=== PATIENT | female | born 1955 | race Caucasian/White ===

== ENCOUNTER 2023-11-30 14:25 | Emergency (ER) | payer OTHER, SELFPAY ==
[2023-11-30 14:30] VITALS: BP 113/88
[2023-11-30 16:02] VITALS: BP 143/77
[2023-11-30 16:55] VITALS: BMI 20.1
--- NOTE | 2023-11-30 16:57 | ED.GENMED ---
History of Present Illness
General
Chief Complaint: Chest Pain
Source: patient
Exam Limitations: none
Time Seen by Provider: 11/30/23 16:50
Nursing documentation reviewed up to this point in time: agreed with
Travel History
Have you had any contact with someone who has COVID-19?: No
Do you have any symptoms of coronavirus? Fever > 100 degrees, chills, cough, shortness of breath, sore throat, loss of taste or smell, muscle aches, or headache?: No
History of Present Illness
History of Present Illness:
Patient to ED wt complaint of chest pressure x 5 days. Reports ocassional palpitations. No difficuly breathing. No pain. Eating, drinking, sleeping normally. No n/v/diaphoresis. Able to complete 2 mi run yesterday. States she was seen by
PCP today. She is supposed to leave on Sunday for vacation. He advised her to come to ED for eval prior to leaving on trip. Has had pressure in the past, usually related to stress. States pressure always resoloved on own in past. THis time
symptoms perisist. Brought to ED by spouse for eval.
Past History
Past History
ED Past Medical History: None
ED Past Surgical History: None
Social History
Tobacco: Non-smoker
Alcohol: Daily (1-2 glasses of wine)
Drug: None
Personal:
Review of Systems
Review of Systems
Allergies reviewed?: Yes
All Other Systems: ROS reviewed and negative except as documented in HPI and ROS
Constitutional: Reports no symptoms
EENT: Reports no symptoms
Respiratory: Reports no symptoms
Cardiac: Reports other (Chest pressure, palpitations)
ABD/GI: Reports no symptoms
: Reports no symptoms
Musculoskeletal: Reports no symptoms
Skin: Reports no symptoms
Neurological: Reports no symptoms
Psychiatric: Reports no symptoms
Phy Exam
General Physical Exam
General Presentation: well appearing and no apparent distress
General age: appears stated age
General Skin: warm and dry
General Habitus: normal
General Mental: alert
Cardiovascular Exam
Cardiovascular Exam: regular rate/rhythm and no edema
Pulmonary Exam
Pulmonary Exam: lungs clear, no respiratory distress, no rales, chest non tender, no crackles, no rhonchi, no stridor, no wheezing and no cough
Musculoskeletal Exam
Musculoskeletal Exam: full ROM and neuro vasc intact
Skin Exam
Skin Exam: normal color, warm/dry and no rash
Psychiatric Exam
Psychiatric Exam: normal mood/affect
Scores
Heart Score for Chest Pain Patients
STEMI patient?: No
History: Slightly or Non-Suspicious
ECG: Normal
Age: >/= 65 years
Risk Factors: 1 or 2 Risk Factors
Troponin: </= Normal Limit
Heart Score for Chest Pain Patients: 3
Heart Score Risk: 2.5% MACE over next 6 weeks
Course
Orders/Labs/Results
Orders:
Orders
11/30/23 14:32
EKG [Electrocardiogram (*1)] Urgent
Reason for Study: Chest Pain
EKG- Treatment ONCE
11/30/23 16:53
CBC/With Diff [Complete Blood Count/With Diff] Urgent
CMP [Comprehensive Metabolic Panel] Urgent
Lipase Urgent
Troponin I Urgent
11/30/23 18:35
Lorazepam [Ativan] 0.25 mg IV NOW STA
Abnormal Lab Results
11/30/23
16:53
RBC 3.94 L 10^6/uL
(4.20-5.40)
MCH 33.0 H pg
(27.0-31.0)
Absolute Lymphs (auto) 1.1 L 10^3/uL
(1.2-3.4)
BUN 18 H mg/dl
(7-17)
11/30/23 16:53
11/30/23 16:53
Vital Signs
Initial and Last Documented VS:
Initial Vital Signs
Temp Pulse Resp BP Pulse Ox
97.8 F 79 18 113/88 99
11/30/23 14:30 11/30/23 14:30 11/30/23 14:30 11/30/23 14:30 11/30/23 14:30
Last Documented Vital Signs
Temp Pulse Resp BP Pulse Ox
97.8 F 81 19 161/83 99
11/30/23 14:30 11/30/23 18:30 11/30/23 18:30 11/30/23 18:09 11/30/23 18:30
*Pulse Oximetry
Patient hypoxic: no
*EKG
Interpretation: normal
Rate: normal
Rhythm: sinus
*Critical Care Note
Total Time (30-74mins, 75-104mins- exclusive of procedures): Not Applicable
ED Attending Note
-
Portions of this chart may have been created with voice recognition software.� Occasional wrong word or��sound alike� substitutions may have occurred due to the inherent limitations of voice recognition software.
Discharge Plan
Departure
Patient Disposition: Home (Routine Discharge)
Date of Disposition: 11/30/23
Time of Disposition: 19:09
Patient with high blood pressure during this ER visit?: No
Condition: Good
Covid-19: Not Applicable
Discharge Problem:
Chest pain
Instructions: Chest Pain That Is Not Caused by the Heart (DC), Chest Pain PCP Follow Up
Referrals:
Chey Sierra, [Family Provider] - Tomorrow
Interventions
Interventions:
*Risk Screen - Suicide Last Done: 11/30/23 16:13
*General Assessment Last Done: 11/30/23 14:30
*Neglect/Abuse Screening Last Done: 11/30/23 16:13
ED- Fall Risk Assessment Last Done: 11/30/23 16:07
*ED COVID-19 Vaccine History Last Done: 11/30/23 14:30
*Nursing Disposition Last Done: 11/30/23 19:13
ED- Cardiac Assessment Last Done: 11/30/23 16:07
Discharge Date and Time
Discharge Date/Time: 11/30/23 19:13
[2023-11-30 16:59] LABS: % Basophils 0.6 % (0-2); % Eosinophils 1.4 % (0-6); % Immature Granulocytes 0.4 % (0-0.5); % Lymphocytes 20.9 % (20.5-51.1); % Monocytes 5.2 % (1.7-9.3); % Neutrophils 71.5 % (42.2-75.2); Absolute Eosinophils 0.1 10^3/uL (0-0.7); Absolute Lymphocytes 1.1 10^3/uL (1.2-3.4); Absolute Monocytes 0.3 10^3/uL (0.1-0.6); Absolute Neutrophils 3.6 10^3/uL (1.4-6.5); Hematocrit 37.6 % (37.0-47.0); Mean Corp Hgb Conc. 34.6 g/dL (33.0-37.0); Mean Corpuscular Volume 95.4 fL (81.0-99.0); Mean Platelet Volume 10.2 fL (7.4-10.4); Nucleated Red Blood Cells % 0 %; Platelet Count 218 10^3/uL (130-400); Red Blood Cell Count 3.94 10^6/uL (4.20-5.40); Red Cell Dist. Width 13.2 % (11.5-14.5)
[2023-11-30 17:18] VITALS: BP 119/86
[2023-11-30 17:32] LABS: ALT (SGPT) 17 U/L (0-35); AST (SGOT) 27 U/L (14-36); Albumin 4.4 g/dl (3.5-5.0); Alkaline Phosphatase 55 U/L (38-126); Blood Urea Nitrogen 18 mg/dl (7-17); Calcium 9.8 mg/dl (8.4-10.2); Carbon Dioxide 27 mmol/L (22-30); Chloride 106 mmol/L (98-107); Estimated Creatinine Clearance 58 ml/min; Glucose 89 mg/dl (70-99); Lipase 158 U/L (23-300); Potassium 4.4 mmol/L (3.5-5.1); Sodium 136 mmol/L (135-145); Total Bilirubin 0.6 mg/dl (0.2-1.3); Total Protein 6.8 g/dl (6.3-8.2); eGFR > 60.00
[2023-11-30 17:41] LABS: Troponin I < 0.012 ng/ml
[2023-11-30 18:00] VITALS: BP 141/93
[2023-11-30 18:09] VITALS: BP 161/83
[2023-11-30] MEDS: ATIVAN 0.25 MG IV (18:38)
== END 2023-11-30 19:13 | disposition home or self-care (01) ==
LOC: EMR 14:25
PROVIDERS: EMERGENCY PHYSICIAN Emergency Medicine; FAMILY PHYSICIAN Family Medicine
DX: R07.89 Other chest pain (principal); R00.2 Palpitations
CPT/HCPCS: 99284; 96374; 80053; 83690; 84484; 85025; 93005